=== PATIENT | female | born 1980 | race Caucasian/White ===

== ENCOUNTER 2018-04-23 18:15 | Emergency (ER) | payer OTHER ==
--- NOTE | 2018-04-23 18:29 | PDOC ---
Rapid Medical Evaluation Time Seen by Provider: 04/23/18 18:28 Medical Evaluation: Allergies Allergy/AdvReac Type Severity Reaction Status Date / Time Penicillins Allergy Intermediate Itching Verified 12/04/12 22:11 04/23/18 18:28 I have performed a brief in-person evaluation of this patient. The patient presents with a chief complaint of:sudden onset chills w/ R flank pain and nausea today. H/o renal stones Pertinent physical exam findings:neymar very uncomfortable w/ stable vitals I have ordered the following:labs/ua The patient will proceed to the ED for further evaluation. Discharge Disposition - Diagnosis Right flank pain - Referrals - Patient Instructions - Post Discharge Activity
[2018-04-23 18:31] VITALS: BP 108/85; PULSE 72; TEMP 98.1; BMI 23.6
[2018-04-23] MEDS ORDERED: KETOROLAC TROMETHAMINE 60 MG/2 ML VIAL IM ONE (18:56)
[2018-04-23] MEDS ORDERED: KETOROLAC TROMETHAMINE 60 MG/2 ML VIAL ONE (19:03)
--- NOTE | 2018-04-23 19:41 | PDOC ---
History of Present Illness - General Chief Complaint: Pain, Acute Stated Complaint: ABD PAIN Time Seen by Provider: 04/23/18 18:28 History Source: Patient Exam Limitations: No Limitations - History of Present Illness Travel History: No Initial Comments: 04/23/18 19:35 Best Contact: PCP: Dr. Devyn Varela/Swati Pmhx: Renal colic Pshx: Laparoscopic appendectomy/laparoscopic cholecystectomy approximately 2 years ago Allergies: Penicillin/Yeast infection FH:0 Social Hx: Cigarettes/ 0 Alcohol: social/ Drugs: denies LMP: 04/04/2018 37-year-old female presents to the emergency department complaining of right- sided flank pain 2 hours. Pain is described as 10/10 sharp constant discomfort radiating to the right groin without fever, chills, nausea/vomiting, headache, dizziness, lightheadedness, chest pain, shortness of breath, abdominal pains, urinary symptoms: Frequency/urgency/hesitancy, hematuria. There are no alleviating or exacerbating factors. Patient states her symptoms are similar to her previous renal colic. Past History - Past Medical History Allergies/Adverse Reactions: Allergies Allergy/AdvReac Type Severity Reaction Status Date / Time Penicillins Allergy Intermediate Itching Verified 12/04/12 22:11 Home Medications: Ambulatory Orders Citalopram Hydrobromide [Celexa] 20 mg PO DAILY 12/04/12 Dibucaine 1% Top/Rectal Oint [Nupercainal (NF) -] 30 gm NR DAILY #1 tube Hydrocortisone Acetate [Anusol-Hc] 25 mg RC HS #10 supp.rect 12/05/12 Polyethylene Glycol 3350 [Miralax 255 gm Btl] 17 gm PO DAILY PRN #1 bottle 12/05 COPD: No Disorders: Yes (renal stones) - Suicide/Smoking/Psychosocial Hx Smoking Status: No Smoking History: Former smoker Have you smoked in the past 12 months: No Number of Cigarettes Smoked Daily: 0 Information on smoking cessation initiated: No Review of Systems - Review of Systems Able to Perform ROS?: Yes Comments:: 04/23/18 19:39 CONSTITUTIONAL: Absent: fever, chills, diaphoresis, generalized weakness, malaise, loss of appetite HEENT: Absent: rhinorrhea, nasal congestion, throat pain, throat swelling, difficulty swallowing, mouth swelling, ear pain, eye pain, visual Changes CARDIOVASCULAR: Absent: chest pain, loss of consciousness, palpitations, irregular heart rate, peripheral edema RESPIRATORY: Absent: cough, shortness of breath, dyspnea with exertion, orthopnea, wheezing, stridor, hemoptysis GASTROINTESTINAL: Absent: abdominal pain, abdominal distension, nausea, vomiting, diarrhea, constipation, melena, hematochezia GENITOURINARY: +Right flank pain Absent: dysuria, frequency, urgency, hesitancy, hematuria, , genital pain MUSCULOSKELETAL: Absent: myalgia, arthralgia, joint swelling SKIN: Absent: rash, itching, pallor Is the patient limited Salvadorean proficient: No *Physical Exam - Vital Signs Last Vital Signs Temp Pulse Resp BP Pulse Ox 98.1 F 72 28 H 108/85 04/23/18 18:28 04/23/18 18:28 04/23/18 18:28 04/23/18 18:28 - Physical Exam Comments: 04/23/18 19:41 GENERAL: Well developed, well nourished. Awake and alert. No acute distress. HEENT: Normocephalic, atraumatic. PERRLA, EOMI. No conjunctival pallor. Sclera are non- icteric. Moist mucous membranes. Oropharynx is clear. NECK: Supple. Full ROM. No JVD. Carotid pulses 2+ and symmetric, without bruits. No thyromegaly. No lymphadenopathy. CARDIOVASCULAR: Regular rate and rhythm. No murmurs, rubs, or gallops. Distal pulses are 2+ and symmetric. PULMONARY: No evidence of respiratory distress. Lungs clear to auscultation bilaterally. No wheezing, rales or rhonchi. ABDOMINAL: Soft. Non-tender. Non-distended. No rebound or guarding. No organomegaly. Normoactive bowel sounds. MUSCULOSKELETAL +right CVAT Normal range of motion at all joints. No bony deformities or tenderness. EXTREMITIES: No cyanosis. No clubbing. No edema. No calf tenderness. SKIN: Warm and dry. Normal capillary refill. No rashes. No jaundice. NEUROLOGICAL: Alert, awake, appropriate. Cranial nerves 2-12 intact. No deficits to light touch and temperature in face, upper extremities and lower extremities. No motor deficits in the in face, upper extremities and lower extremities. Normoreflexic in the upper and lower extremities. Normal speech. Toes are down- going bilaterally. Gait is normal without ataxia. PSYCHIATRIC: Cooperative. Good eye contact. Appropriate mood and affect. ED Treatment Course - LABORATORY CBC & Chemistry Diagram: 04/23/18 19:12 04/23/18 19:12 - RADIOLOGY Radiograph Interpretation: 04/23/18 19:42 CT renal colic: Nonobstructing right renal stone measuring 3 mm. Obstructing stone in the proximal/mid right ureter measuring 4 x 3.5 cm with mild proximal hydroureter and hydronephrosis. 2151hrs: Called DR. Murphy/radiologist: will put an addendum for 4x3.5mm not cm - Medications Given in the ED: ED Medications Discontinued Medications Generic Name Dose Route Start Last Admin Trade Name Freq PRN Reason Stop Dose Admin Ketorolac Tromethamine 60 mg 04/23/18 18:56 04/23/18 19:15 Toradol Injection - IM 04/23/18 18:57 60 mg ONCE ONE Administration Progress Note - Progress Note Progress Note: 1926hrs: Pt is completely pain free. Pt is comfortable on her stretcher/texting on her cell phone. 2138hrs: Called Dr. Soren Linn [phone]/urology operator receptionist Medical Decision Making - Medical Decision Making 04/23/18 20:40 37-year-old female with a history of renal colic presents to the ER complaining of right-sided flank pain radiating to the groin without any urinary symptoms, nausea/vomiting, fever/chills. UA/urine culture, CBC/chemistry ordered. Review negative, patient will go for spiral CT to rule out renal colic. Presentation consistent with renal colic. Differential diagnosis can be UTI/ back pain. *DC/Admit/Observation/Transfer Diagnosis at time of Disposition: Right flank pain, Hydronephrosis with renal calculous obstruction - Discharge Dispostion Disposition: HOME Condition at time of disposition: Stable Decision to Admit order: No - Referrals Referrals: Shad Barajas MD [Staff Physician] - - Patient Instructions Printed Discharge Instructions: Kidney Stones -- Adult, Hydronephrosis -- Adult Additional Instructions: You had a CAT scan of your abdomen and pelvis without any contrast while in the emergency department this evening: Your preliminary impression shows that you have a 1/non-obstructing right renal stone measuring 3 mm 2/obstructing stone in the proximal/mid right ureter measuring 4 x 3.5 mm with mild proximal hydroureter and hydronephrosis. It is important that you drink a lot of water Take Toradol by mouth as needed every 8 hours Follow-up with the urologist listed on your discharge this week Return back to the emergency department for severe/persistent or worsening symptoms - Post Discharge Activity
[2018-04-23 19:42] LABS: BASO % 1.5 % (0-2.0); HEMATOCRIT 40.4 % (32.4-45.2); HEMOGLOBIN 12.7 GM/dL (10.7-15.3); LYMPH % 24.4 % (8-40); MCH 24.6 pg (25.7-33.7); MCHC 31.5 g/dl (32.0-36.0); MEAN CELL VOLUME 78.2 fl (80-96); MEAN PLT VOLUME 8.2 fl (7.5-11.1); MONO % 7.6 % (3.8-10.2); NEUT % 65.5 % (42.8-82.8); PLATELET COUNT 314 K/MM3 (134-434); RBC 5.17 M/mm3 (3.60-5.2); RDW 15.7 % (11.6-15.6); WHITE BLOOD COUNT 9.9 K/mm3 (4.0-10.0)
[2018-04-23 20:12] LABS: ALBUMIN 3.6 g/dl (3.4-5.0); ALK PHOS 122 U/L (45-117); ANION GAP 7 MMOL/L (8-16); BILIRUBIN,TOTAL 0.4 mg/dL (0.2-1); BLOOD UREA NITROGEN 15 mg/dL (7-18); CALCIUM 8.6 mg/dL (8.5-10.1); CHLORIDE 106 mmol/L (98-107); CO2 26 mmol/L (21-32); CREATININE 0.8 mg/dL (0.55-1.3); GLUCOSE,RANDOM 104 mg/dL (74-106); LIPASE 172 U/L (73-393); POTASSIUM 4.6 mmol/L (3.5-5.1); SGOT/AST 30 U/L (15-37); SGPT/ALT 32 U/L (13-61); SODIUM 139 mmol/L (136-145); TOT PROT 7.4 g/dl (6.4-8.2)
[2018-04-23 20:16] LABS: URINE APPEARANCE CLOUDY; URINE BILIRUBIN NEGATIVE (<2.0 mg/dL); URINE COLOR AMBER; URINE GLUCOSE (UA) NEGATIVE (NEGATIVE); URINE KETONE NEGATIVE (NEGATIVE); URINE LEUK ESTERASE NEGATIVE (NEGATIVE); URINE NITRITE NEGATIVE (NEGATIVE); URINE PROTEIN 2+ (NEGATIVE); URINE UROBILINOGEN NEGATIVE mg/dL (0.2-1.0)
[2018-04-23 20:23] LABS: EPI CELLS RARE /HPF (FEW); URINE MUCUS FEW
== END 2018-04-23 22:48 | disposition home or self-care (01) ==
LOC: JER 18:15
PROC: 3E0233Z Introduction of Anti-inflammatory into Muscle, Percutaneous Approach (ICD-10-PCS; principal; 2018-04-23)
DX: N13.2 Hydronephrosis with renal and ureteral calculous obstruction (principal); Z88.0 Allergy status to penicillin
CPT/HCPCS: 36415; 74176; 80053; 81003; 81015; 83690; 84703; 85025; 87086; 99283-25

== ENCOUNTER 2024-05-09 09:43 | Emergency (ER) | payer OTHER ==
[2024-05-09 10:06] VITALS: BP 111/73; PULSE 67; RESP 17; TEMP 98.3; BMI 34.0
== END 2024-05-09 11:30 | disposition home or self-care (01) ==
LOC: JERFT 09:43
DX: S86.911A Strain of unspecified muscle(s) and tendon(s) at lower leg level, right leg, initial encounter (principal); W10.9XXA Fall (on) (from) unspecified stairs and steps, initial encounter
CPT/HCPCS: 99283-25